=== PATIENT | female | born 2000 ===

== ENCOUNTER 2019-06-27 16:00 | Observation (INO) | payer SELFPAY ==
[~2019-06-27] VITALS: Ht 157.5 cm; Wt 91.6 kg
[2019-06-27] MEDS ORDERED: RINGERS SOLUTION,LACTATED 1,000 ML IV SCH (16:25)
[2019-06-27 18:21] VITALS: BP 109/63
== END 2019-06-27 19:20 | disposition home or self-care (01) ==
LOC: 4S 16:00
PROVIDERS: ADMIT Obstetrics & Gynecology; ATTEND Obstetrics & Gynecology
DX: O36.8310 Maternal care for abnormalities of the fetal heart rate or rhythm, first trimester, not applicable or unspecified (principal); Z3A.34 34 weeks gestation of pregnancy
CPT/HCPCS: 76805; 81002; G0378; J7120